=== PATIENT | male | born 1970 | race African-American/Black ===

== ENCOUNTER 2017-01-18 02:58 | Emergency (ER) | payer BC ==
[~2017-01-18] VITALS: Ht 170.2 cm; Wt 104.8 kg
[2017-01-18 03:21] LABS: HEMATOCRIT 45.8 % (38.0-50.0); MCH 28.7 PG (29.0-34.0); MCHC 33.6 G/DL (30.0-36.0); MCV 85.3 FL (86-99); MEAN PLAT.VOLUME 8.4 uM^3 (9.0-12.4); PLATELET COUNT 311 K/uL (156-360); RBC DIS.WIDTH-CV 13.1 % (11.8-14.6); RBC DIS.WIDTH-SD 40.7 % (39-53); RED BLOOD COUNT 5.37 M/uL (4.00-5.50); WHITE BLOOD COUNT 9.9 K/uL (4.1-10.2)
[2017-01-18 03:33] LABS: CHLORIDE 103 mEq/L (99-109); POTASSIUM 3.8 mEq/L (3.7-5.4); SODIUM 135 mEq/L (136-147)
[2017-01-18 03:35] LABS: GLUCOSE 135 mg/dL (70-99)
[2017-01-18 03:36] LABS: ANION GAP 11 MEQ/L (2-14)
[2017-01-18 03:39] LABS: UREA NITROGEN (BUN) 12 mg/dL (9-23)
[2017-01-18 03:43] LABS: TROP-I INTERPRETATION NEGATIVE; TROPONIN-I < 0.01 ng/mL (0.0-0.30)
[2017-01-18 03:50] LABS: GFR ESTIMATE (CALCULATED) > 59 mL/min/
[2017-01-18 05:31] LABS: TROP-I INTERPRETATION NEGATIVE; TROPONIN-I < 0.01 ng/mL (0.0-0.30)
[2017-01-18 06:03] VITALS: BP 138/86
== END 2017-01-18 06:04 | disposition home or self-care (01) ==
LOC: EME 02:58
PROVIDERS: Emergency Medicine
DX: R07.9 Chest pain, unspecified (principal); I10 Essential (primary) hypertension; R42 Dizziness and giddiness; T46.4X6A Underdosing of angiotensin-converting-enzyme inhibitors, initial encounter; Z91.128 Patient's intentional underdosing of medication regimen for other reason
CPT/HCPCS: 70450; 71020; 80048; 84484; 85027; 93005; 99281; 99285

== ENCOUNTER 2017-01-23 14:12 | Emergency (ER) | payer BC ==
[~2017-01-23] VITALS: Ht 165.1 cm; Wt 103.8 kg
[2017-01-23 14:26] VITALS: BP 141/96
[2017-01-23] MEDS ORDERED: LISINOPRIL20 MG PO (15:08)
[2017-01-23] MEDS ORDERED: HYDROCHLOROTHIA50 MG PO (15:08)
[2017-01-23] MEDS ORDERED: KEFLEX500 MG PO (16:04)
== END 2017-01-23 17:13 | disposition home or self-care (01) ==
LOC: EME 14:12
PROC: 0H9GXZZ Drainage of Left Hand Skin, External Approach (ICD-10-PCS; principal; 2017-01-23)
DX: L03.012 Cellulitis of left finger (principal); I10 Essential (primary) hypertension
CPT/HCPCS: 99281; 99283; S0020

== ENCOUNTER 2017-03-21 12:13 | Emergency (ER) | payer BC ==
[~2017-03-21] VITALS: Ht 170.2 cm; Wt 107.3 kg
[~2017-03-21 12:13] MED LIST: HYDROCHLOROTHIA50 MG PO; KEFLEX500 MG PO; LISINOPRIL20 MG PO
[2017-03-21 12:53] VITALS: BP 204/132
[2017-03-21] MEDS ORDERED: HYDROCHLOROTHIA50 MG PO (17:03)
[2017-03-21] MEDS ORDERED: LISINOPRIL20 MG PO (17:03)
== END 2017-03-21 17:23 | disposition home or self-care (01) ==
LOC: EME 12:13
DX: M13.862 Other specified arthritis, left knee (principal); M25.462 Effusion, left knee; I10 Essential (primary) hypertension; Z76.0 Encounter for issue of repeat prescription
CPT/HCPCS: 73564; 93971

== ENCOUNTER 2017-06-07 21:42 | Observation (INO) | payer BC ==
[~2017-06-07] VITALS: Ht 170.2 cm; Wt 102.6 kg
[2017-06-07 22:24] LABS: HEMATOCRIT 47.1 % (38.0-50.0); HEMOGLOBIN 16.3 G/DL (12.5-16.6); MCH 29.4 PG (29.0-34.0); MCHC 34.6 G/DL (30.0-36.0); PLATELET COUNT 307 K/uL (156-360); RBC DIS.WIDTH-CV 13.2 % (11.8-14.6); RBC DIS.WIDTH-SD 40.8 % (39-53); RED BLOOD COUNT 5.54 M/uL (4.00-5.50); WHITE BLOOD COUNT 10.5 K/uL (4.1-10.2)
[2017-06-07 22:33] LABS: CHLORIDE 100 mEq/L (99-109); POTASSIUM 3.6 mEq/L (3.7-5.4); SODIUM 138 mEq/L (136-147)
[2017-06-07 22:34] LABS: GLUCOSE 128 mg/dL (70-99)
[2017-06-07 22:38] LABS: CREATININE 1.4 mg/dL (0.6-1.3); GFR ESTIMATE (CALCULATED) > 59 mL/min/ (58.99-99999)
[2017-06-07 22:39] LABS: UREA NITROGEN (BUN) 16 mg/dL (9-23)
[2017-06-07 22:45] LABS: TROP-I INTERPRETATION NEGATIVE; TROPONIN-I < 0.01 ng/mL (0.0-0.30)
[2017-06-08 01:03] LABS: MAGNESIUM 2.3 mg/dL (1.3-2.7)
[2017-06-08 05:42] LABS: TROP-I INTERPRETATION NEGATIVE; TROPONIN-I 0.01 ng/mL (0.0-0.30)
[2017-06-08 07:00] LABS: HEMATOCRIT 46.8 % (38.0-50.0); MCH 29.1 PG (29.0-34.0); MCHC 34.2 G/DL (30.0-36.0); MCV 85.1 FL (86-99); PLATELET COUNT 302 K/uL (156-360); RBC DIS.WIDTH-CV 13.3 % (11.8-14.6); RBC DIS.WIDTH-SD 41.5 % (39-53); WHITE BLOOD COUNT 9.2 K/uL (4.1-10.2)
[2017-06-08 07:05] LABS: ALBUMIN 4.4 G/DL (3.2-4.8); ALKALINE PHOSPHATASE 71 IU/L (3-129); ALT (GPT) 14 IU/L (3-49); AST (GOT) 15 IU/L (2-34); CHLORIDE 99 MEQ/L (99-109); CREATININE 1.3 MG/DL (0.6-1.3); GFR ESTIMATE (CALCULATED) > 59 mL/min/ (58.99-99999); GLUCOSE 149 mg/dL (70-99); POTASSIUM 3.8 MEQ/L (3.7-5.4); SODIUM 134 MEQ/L (136-147); TOTAL BILIRUBIN 0.6 MG/DL (0.0-1.0); UREA NITROGEN (BUN) 13 mg/dL (9-23)
[2017-06-08 11:18] LABS: APPEARANCE CLEAR ((CLEAR)); BILIRUBIN NEGATIVE; BLOOD NEGATIVE; COLOR YELLOW ((YELLOW)); GLUCOSE (STRIP) NEGATIVE; KETONES NEGATIVE; LEUKOCYTES NEGATIVE; NITRITE NEGATIVE; PROTEIN (STRIP) NEGATIVE; SPECIFIC GRAVITY 1.011 (1.000-1.030)
[2017-06-08 11:24] LABS: HEMOGLOBIN A1c (GLYCOHEMOGLOB) 6.1 % (Below 5.7)
[2017-06-08 11:40] LABS: TROP-I INTERPRETATION NEGATIVE; TROPONIN-I < 0.01 ng/mL (0.0-0.30)
[2017-06-08] MEDS ORDERED: LOPRESSOR25 MG PO (11:43)
[2017-06-08] MEDS ORDERED: HYDROCHLOROTHIA25 MG PO (11:44)
[2017-06-08] MEDS ORDERED: ASPIR 8181 M1 PO (11:44)
[2017-06-08 12:38] VITALS: BP 131/99
== END 2017-06-08 12:38 | disposition home or self-care (01) ==
LOC: EME 21:42 → EDOF 06-08 02:23 → CANRESERV 06-08 02:25 → ENRESERV 06-08 02:25 → EDOF 06-08 12:38
PROVIDERS: Internal Medicine; Physician Assistant
DX: R07.9 Chest pain, unspecified (principal); I10 Essential (primary) hypertension; R06.09 Other forms of dyspnea; R00.0 Tachycardia, unspecified; M25.512 Pain in left shoulder; M79.602 Pain in left arm; N17.9 Acute kidney failure, unspecified; R73.9 Hyperglycemia, unspecified; E87.6 Hypokalemia; R55 Syncope and collapse; Z91.14 Patient's other noncompliance with medication regimen; Z80.52 Family history of malignant neoplasm of bladder
CPT/HCPCS: 71046; 80048; 80053; 81003; 83036; 83735; 84484; 85027; 93005; 99281; 99284; G0378; J1644; J3010